=== PATIENT | female | born 1960 | race Caucasian/White ===

== ENCOUNTER 2018-08-29 12:48 | Outpatient (CLI) | payer OTHER ==
--- NOTE | 2018-08-29 13:04 | RAD ---
TWO VIEW CHEST: INDICATION: Dyspnea. COMPARISON: 03/21/2018. FINDINGS: There is no consolidation or effusion. Cardiac silhouette is of normal size. No significant interva l change from comparison exam. IMPRESSION: Stable chest, without focal consolidation. POS: C
== END 2018-08-29 12:49 | disposition home or self-care (01) ==
LOC: RAD 12:48
PROVIDERS: ATTEND Internal Medicine
DX: R06.00 Dyspnea, unspecified (principal)
CPT/HCPCS: 71046

== ENCOUNTER 2021-08-05 18:00 | Outpatient (CLI) | payer BC | END 2021-08-05 18:01 | disposition home or self-care (01) | LOC: SLEEPLAB 18:00 | PROVIDERS: ATTEND Internal Medicine Critical Care Medicine | DX: G47.33 Obstructive sleep apnea (adult) (pediatric) (principal); G47.00 Insomnia, unspecified | CPT/HCPCS: 95800 ==